=== PATIENT | male | born 1995 | race African-American/Black ===

== ENCOUNTER 2019-02-05 22:57 | Emergency (ER) | payer OTHER ==
[~2019-02-05] VITALS: Ht 172.7 cm; Wt 80.0 kg
[2019-02-05] MEDS ORDERED: SODIUM CHLORIDE 0.9% 1,000 ML IV ONE (23:48)
[2019-02-05] MEDS ORDERED: IPRATROPIUM BROMIDE (0.02%) 0.5MG/2.5ML NEB HHN STA (23:48)
[2019-02-05] MEDS ORDERED: ALBUTEROL (0.083%) 2.5MG/3ML NEB HHN STA (23:48)
[2019-02-05] MEDS ORDERED: KETOROLAC 30MG/ML VIAL IV STA (23:48)
[2019-02-06 00:07] LABS: BASOPHILS % 0.5 % (0.0-2.0); HEMATOCRIT. 50.9 % (42.0-52.0); HEMOGLOBIN. 17.8 g/dL (14.0-18.0); LYMPHOCYTES % 11.5 % (20.0-50.0); MEAN CORPUSCULAR HEMOGLOBIN 31.6 pg (28.0-32.0); MEAN CORPUSCULAR VOLUME 90.2 fL (80.0-94.0); MEAN PLATELET VOLUME 9.6 fl (7.4-10.4); PLATELET 140 x1000/uL (130-400); RED BLOOD CELL COUNT 5.65 mill/uL (4.7-6.1); RED CELL DISTRIBUTION WIDTH 13.6 % (11.6-14.6)
[2019-02-06 00:13] LABS: CHLORIDE 101 mEq/L (98-107)
[2019-02-06] MEDS ORDERED: SODIUM CHLORIDE 0.9% 500 ML IV ONE (01:30)
[2019-02-06] MEDS ORDERED: PREDNISONE 20MG TABLET PO ONE (01:30)
[2019-02-06] MEDS ORDERED: ALBUTEROL (0.5%) 2.5MG/0.5ML NEB HHN ONE (01:30)
[2019-02-06 02:30] VITALS: BP 139/68
== END 2019-02-06 02:38 | disposition home or self-care (01) ==
LOC: ER 23:16
DX: J45.901 Unspecified asthma with (acute) exacerbation (principal); J44.9 Chronic obstructive pulmonary disease, unspecified; J09.X2 Influenza due to identified novel influenza A virus with other respiratory manifestations; R10.13 Epigastric pain; R00.0 Tachycardia, unspecified; M79.10 Myalgia, unspecified site
CPT/HCPCS: 36415; 71045; 80053; 84484; 85025; 87804; 93005; 94640; 96361; 96374; 99284; J1885; J7030; J7040; J7512; J7611; Z7610

== ENCOUNTER 2019-12-15 12:37 | Emergency (ER) | payer OTHER ==
[~2019-12-15] VITALS: Ht 172.7 cm; Wt 85.2 kg
[2019-12-15] MEDS ORDERED: ACETAMINOPHEN 325MG TABLET PO STA (13:27)
[2019-12-15] MEDS ORDERED: ALBUTEROL (0.083%) 2.5MG/3ML NEB HHN STA (13:27)
[2019-12-15] MEDS ORDERED: MAGNESIUM 2 G PREMIX 50 ML IV ONE (13:30)
[2019-12-15 14:41] LABS: HEMOGLOBIN. 16.1 g/dL (14.0-18.0); MEAN CORPUSCULAR HEMOGLOBIN 30.4 pg (28.0-32.0); MEAN CORPUSCULAR VOLUME 88.4 fL (80.0-94.0); MEAN PLATELET VOLUME 9.7 fl (7.4-10.4); PLATELET 156 x1000/uL (130-400); RED BLOOD CELL COUNT 5.31 mill/uL (4.7-6.1); RED CELL DISTRIBUTION WIDTH 13.7 % (11.6-14.6)
[2019-12-15 14:58] LABS: CHLORIDE 105 mEq/L (98-107)
[2019-12-15 15:34] LABS: PLATELET ESTIMATE NORMAL
[2019-12-15 16:00] VITALS: BP 120/78
[2019-12-15] MEDS ORDERED: IBUPROFEN 600MG TABLET PO ONE (16:00)
== END 2019-12-15 16:00 | disposition home or self-care (01) ==
LOC: ER 12:37
DX: R05 Cough (principal); R06.02 Shortness of breath; Z71.89 Other specified counseling
CPT/HCPCS: 36415; 71045; 80053; 85025; 93005; 94640; 96365; 99285; J3475; Z7610

== ENCOUNTER 2019-12-17 09:47 | Inpatient (IN) | payer OTHER ==
[~2019-12-17] VITALS: Ht 172.7 cm; Wt 82.6 kg
[2019-12-17] MEDS ORDERED: ACETAMINOPHEN 325MG TABLET PO ONE (10:00)
[2019-12-17] MEDS ORDERED: MAGNESIUM 2 G PREMIX 50 ML IV STA ×2 (10:09→12:00)
[2019-12-17] MEDS ORDERED: ALBUTEROL (0.083%) 2.5MG/3ML NEB HHN STA ×2 (10:09→12:00)
[2019-12-17 10:28] LABS: HEMATOCRIT. 43.4 % (42.0-52.0); HEMOGLOBIN. 14.9 g/dL (14.0-18.0); MEAN CORPUSCULAR HEMOGLOBIN 30.1 pg (28.0-32.0); MEAN CORPUSCULAR VOLUME 87.8 fL (80.0-94.0); MEAN PLATELET VOLUME 9.2 fl (7.4-10.4); PLATELET 188 x1000/uL (130-400); RED BLOOD CELL COUNT 4.94 mill/uL (4.7-6.1); RED CELL DISTRIBUTION WIDTH 13.9 % (11.6-14.6)
[2019-12-17 10:35] LABS: CHLORIDE 105 mEq/L (98-107)
[2019-12-17 10:39] LABS: INR 1.1; PROTHROMBIN TIME 11.9 sec (9.6-11.0)
[2019-12-17] MEDS ORDERED: CEFTRIAXONE 1 G PREMIX 50 ML IV ONE (11:15)
[2019-12-17] MEDS ORDERED: AZITHROMYCIN 500 MG TABLET PO ONE (11:15)
[2019-12-17] MEDS ORDERED: KETOROLAC 15MG/ML VIAL IV ONE (11:30)
[2019-12-17 11:37] LABS: PLATELET ESTIMATE NORMAL
[2019-12-17 12:48] LABS: CLARITY URINE CLEAR (CLEAR); COLOR URINE DK YELLOW (YELLOW); KETONES URINE NEGATIVE (NEGATIVE); LEUKOCYTE ESTERASE URINE NEGATIVE (NEGATIVE); NITRITE URINE NEGATIVE (NEGATIVE); OCCULT BLOOD URINE NEGATIVE (NEGATIVE); PROTEIN URINE 1+ (NEGATIVE); SPECIFIC GRAVITY URINE 1.024 (1.005-1.030)
[2019-12-17] MEDS ORDERED: KETOROLAC 15MG/ML VIAL IV PRN (14:15)
[2019-12-17] MEDS ORDERED: DOCUSATE SODIUM 100MG CAPSULE PO PRN (14:15)
[2019-12-17] MEDS ORDERED: ALBUTEROL 6.7GM HFA INHALER ORI PRN (14:15)
[2019-12-17] MEDS ORDERED: ZOLPIDEM TARTRATE 5MG TABLET PO PRN (14:15)
[2019-12-17] MEDS ORDERED: ACETAMINOPHEN 325MG TABLET PO PRN (14:15)
[2019-12-17] MEDS ORDERED: DIPHENHYDRAMINE 50MG/ML VIAL IV PRN (14:15)
[2019-12-17] MEDS ORDERED: MAGNESIUM/ALUMINUM HYDROXIDE/SIMETHICONE 30ML UDC PO PRN (14:15)
[2019-12-17] MEDS ORDERED: NITROGLYCERIN 0.4MG TABLET SL SL PRN (14:15)
[2019-12-17] MEDS ORDERED: ONDANSETRON HCL 4MG/2ML INJ IV PRN (14:15)
[2019-12-17] MEDS ORDERED: GUAIFENESIN 200MG/10ML SUGAR FREE UDC PO PRN (14:15)
[2019-12-17] MEDS ORDERED: CLONIDINE 0.1MG TABLET PO PRN (14:15)
[2019-12-17] MEDS ORDERED: POTASSIUM CHLORIDE 20MEQ TABLET SR PO NR (14:45)
[2019-12-17] MEDS ORDERED: KCL 20MEQ/100ML PREMIX 100 ML IV SCH (15:00)
[2019-12-17] MEDS: ENOXAPARIN 40MG/0.4ML SYR SUBCUT SCH (15:52)
[2019-12-17 19:14] LABS: BG BASE EXCESS -2.4 mmol/L (-2.0-2.0); BG CARBOXYHEMOGLOBIN 0.1 % (0.5-1.5); BG FRACTION INSPIRED OXYGEN 32; BG HCO3 ACT 22.7 mmol/L (22.0-26.0); BG METHEMOGLOBIN 0.4 % (0.0-1.5); BG OXYHEMOGLOBIN 96.5 % (94.0-97.0); BG PCO2 40.2 mmHg (35.0-45.0); BG PH 7.369 (7.350-7.450); BG PO2 93.7 mmHg (75.0-100.0); BG SAMPLE SITE RIGHT RADIAL; BG TOTAL HEMOGLOBIN 15.7 g/dL (12.0-18.0); BG VENT MODE NASAL CANNULA
[2019-12-17 20:00] VITALS: BP_SYST 108; BP_SYST 124; BP_DIAS 57; BP_DIAS 58
[2019-12-17] MEDS: ACETAMINOPHEN 325MG TABLET PO PRN (21:04)
[2019-12-17] MEDS: GUAIFENESIN/DM 600MG/30MG ER TAB 12HR PO SCH (21:04)
[2019-12-17] MEDS: FAMOTIDINE 20MG TABLET PO SCH (21:04)
[2019-12-17] MEDS: ASCORBIC ACID 500 MG TABLET PO SCH (21:04)
[2019-12-17] MEDS: METHYLPREDNISOLONE SOD SUCC 125 MG/2 ML VIAL IV SCH (21:05)
[2019-12-17] MEDS ORDERED: PNEUMOCOCCAL 23-VAL P-SAC VAC 0.5 ML IM ONE (22:45)
[2019-12-17] MEDS ORDERED: ALBU2.5V13 NEB (23:26)
[2019-12-17] MEDS ORDERED: P50 PO (23:27)
[2019-12-17] MEDS ORDERED: ALBU18HF2 IH (23:28)
[2019-12-18] VITALS (7 sets, daily range): BP systolic 108–134; BP diastolic 56–92
[2019-12-18 00:08] LABS: CREATINE KINASE 203 IU/L (39-308)
[2019-12-18 00:09] LABS: CREATINE KINASE MB FRACTION < 1.0 ng/mL (0.5-3.6)
[2019-12-18 02:49] LABS: *AMPHETAMINES SCREEN URINE NEGATIVE (NEGATIVE); *BARBITURATES SCREEN URINE NEGATIVE (NEGATIVE); *BENZODIAZEPINES SCREEN URINE NEGATIVE (NEGATIVE); *COCAINE SCREEN URINE NEGATIVE (NEGATIVE); CANNABINOID URINE SCREEN NEGATIVE (NEGATIVE); PHENCYCLIDINE URINE SCREEN NEGATIVE (NEGATIVE)
[2019-12-18 02:50] LABS: METHADONE URINE SCREEN NEGATIVE (NEGATIVE); OPIATES URINE SCREEN NEGATIVE (NEGATIVE)
[2019-12-18] MEDS: METHYLPREDNISOLONE SOD SUCC 125 MG/2 ML VIAL IV SCH ×3 (06:39→21:29)
[2019-12-18] MEDS ORDERED: AZITHROMYCIN 500 MG in DEXT 5% WATER 250 ML IV SCH (09:00)
[2019-12-18 09:01] LABS: HEMATOCRIT. 44.9 % (42.0-52.0); MEAN CORPUSCULAR HEMOGLOBIN 30.2 pg (28.0-32.0); MEAN CORPUSCULAR VOLUME 90.4 fL (80.0-94.0); MEAN PLATELET VOLUME 9.2 fl (7.4-10.4); PLATELET 226 x1000/uL (130-400); RED BLOOD CELL COUNT 4.97 mill/uL (4.7-6.1); RED CELL DISTRIBUTION WIDTH 14.1 % (11.6-14.6)
[2019-12-18 09:18] LABS: CHLORIDE 103 mEq/L (98-107)
[2019-12-18 09:27] LABS: PHOSPHORUS 3.5 mg/dL (2.5-4.9)
[2019-12-18 09:29] LABS: CREATINE KINASE 205 IU/L (39-308)
[2019-12-18 09:33] LABS: CREATINE KINASE MB FRACTION < 1.0 ng/mL (0.5-3.6)
[2019-12-18] MEDS: FAMOTIDINE 20MG TABLET PO SCH ×2 (10:45→21:29)
[2019-12-18] MEDS: ASCORBIC ACID 500 MG TABLET PO SCH ×2 (10:45→21:29)
[2019-12-18] MEDS: GUAIFENESIN/DM 600MG/30MG ER TAB 12HR PO SCH ×2 (10:45→21:29)
[2019-12-18] MEDS: ZINC SULFATE 220 MG ( 50 ) CAPSULE PO SCH (10:46)
[2019-12-18] MEDS ORDERED: CEFTRIAXONE 1 G PREMIX 50 ML IV SCH (11:00)
[2019-12-18 12:46] LABS: PLATELET ESTIMATE NORMAL
[2019-12-18] MEDS: CEFTRIAXONE 1,000 MG in DEXTROSE 5% WATER 50 ML IV SCH (15:02)
[2019-12-18] MEDS: AZITHROMYCIN 500 MG in DEXT 5% WATER 250 ML IV SCH (15:03)
[2019-12-18] MEDS: ENOXAPARIN 40MG/0.4ML SYR SUBCUT SCH (15:42)
[2019-12-18] MEDS: ALBUTEROL 6.7GM HFA INHALER ORI SCH ×2 (15:51→21:23)
[2019-12-18] MEDS: MONTELUKAST SODIUM 10MG TABLET PO SCH (16:54)
[2019-12-19] MEDS: ALBUTEROL 6.7GM HFA INHALER ORI SCH ×4 (03:20→22:59)
[2019-12-19 04:00] VITALS: BP 135/85
[2019-12-19] MEDS: METHYLPREDNISOLONE SOD SUCC 125 MG/2 ML VIAL IV SCH (05:42)
[2019-12-19 08:00] VITALS: BP 123/81
[2019-12-19] MEDS: ZINC SULFATE 220 MG ( 50 ) CAPSULE PO SCH (08:09)
[2019-12-19] MEDS: FAMOTIDINE 20MG TABLET PO SCH ×2 (08:09→20:28)
[2019-12-19] MEDS: GUAIFENESIN/DM 600MG/30MG ER TAB 12HR PO SCH ×2 (08:09→20:28)
[2019-12-19] MEDS: ASCORBIC ACID 500 MG TABLET PO SCH ×2 (08:09→20:28)
[2019-12-19 12:00] VITALS: BP 122/77
[2019-12-19] MEDS ORDERED: AZITHROMYCIN 500 MG in DEXT 5% WATER 250 ML IV SCH (12:00)
[2019-12-19] MEDS: AZITHROMYCIN 500 MG in DEXT 5% WATER 250 ML IV SCH (14:13)
[2019-12-19] MEDS: DEXAMETHASONE 10 MG/ML VIAL IV SCH (14:14)
[2019-12-19] MEDS: ENOXAPARIN 40MG/0.4ML SYR SUBCUT SCH (14:16)
[2019-12-19] MEDS: CEFTRIAXONE 1,000 MG in DEXTROSE 5% WATER 50 ML IV SCH (15:33)
[2019-12-19 16:00] VITALS: BP 122/68
[2019-12-19] MEDS: MONTELUKAST SODIUM 10MG TABLET PO SCH (18:12)
[2019-12-19 20:42] VITALS: BP 125/83
[2019-12-19 23:30] VITALS: BP 130/83
[2019-12-20] MEDS: ALBUTEROL 6.7GM HFA INHALER ORI SCH ×4 (03:28→20:21)
[2019-12-20 04:00] VITALS: BP 132/88
[2019-12-20 08:00] VITALS: BP 128/91
[2019-12-20] MEDS: ZINC SULFATE 220 MG ( 50 ) CAPSULE PO SCH (08:14)
[2019-12-20] MEDS: GUAIFENESIN/DM 600MG/30MG ER TAB 12HR PO SCH ×2 (08:14→20:20)
[2019-12-20] MEDS: ASCORBIC ACID 500 MG TABLET PO SCH ×2 (08:14→20:20)
[2019-12-20] MEDS: DEXAMETHASONE 10 MG/ML VIAL IV SCH (08:14)
[2019-12-20] MEDS: FAMOTIDINE 20MG TABLET PO SCH ×2 (08:14→20:20)
[2019-12-20 12:00] VITALS: BP 125/87
[2019-12-20] MEDS: CEFTRIAXONE 1,000 MG in DEXTROSE 5% WATER 50 ML IV SCH (12:51)
[2019-12-20] MEDS: AZITHROMYCIN 500 MG in DEXT 5% WATER 250 ML IV SCH (14:34)
[2019-12-20] MEDS: ENOXAPARIN 40MG/0.4ML SYR SUBCUT SCH (14:35)
[2019-12-20 16:00] VITALS: BP 118/83
[2019-12-20] MEDS: MONTELUKAST SODIUM 10MG TABLET PO SCH (17:06)
[2019-12-20 19:52] VITALS: BP 103/70
[2019-12-20 23:31] VITALS: BP 124/81
[2019-12-21] MEDS: ALBUTEROL 6.7GM HFA INHALER ORI SCH ×4 (03:24→21:18)
[2019-12-21 04:00] VITALS: BP 125/89
[2019-12-21 05:59] LABS: CHLORIDE 104 mEq/L (98-107)
[2019-12-21 06:09] LABS: HEMATOCRIT. 48.2 % (42.0-52.0); HEMOGLOBIN. 16.2 g/dL (14.0-18.0); MEAN CORPUSCULAR HEMOGLOBIN 30.2 pg (28.0-32.0); MEAN CORPUSCULAR VOLUME 89.6 fL (80.0-94.0); MEAN PLATELET VOLUME 8.9 fl (7.4-10.4); PLATELET 345 x1000/uL (130-400); RED BLOOD CELL COUNT 5.38 mill/uL (4.7-6.1); RED CELL DISTRIBUTION WIDTH 13.8 % (11.6-14.6)
[2019-12-21 08:00] VITALS: BP 122/84
[2019-12-21] MEDS: DEXAMETHASONE 10 MG/ML VIAL IV SCH (08:25)
[2019-12-21] MEDS: ZINC SULFATE 220 MG ( 50 ) CAPSULE PO SCH (08:25)
[2019-12-21] MEDS: FAMOTIDINE 20MG TABLET PO SCH ×2 (08:25→21:16)
[2019-12-21] MEDS: ASCORBIC ACID 500 MG TABLET PO SCH ×2 (08:25→21:16)
[2019-12-21] MEDS: GUAIFENESIN/DM 600MG/30MG ER TAB 12HR PO SCH ×2 (08:25→21:15)
[2019-12-21 12:00] VITALS: BP 115/83
[2019-12-21 13:06] LABS: PLATELET ESTIMATE NORMAL
[2019-12-21] MEDS: CEFTRIAXONE 1,000 MG in DEXTROSE 5% WATER 50 ML IV SCH (13:13)
[2019-12-21] MEDS: ACETAMINOPHEN 325MG TABLET PO PRN (13:14)
[2019-12-21 16:00] VITALS: BP 124/80
[2019-12-21] MEDS: MONTELUKAST SODIUM 10MG TABLET PO SCH (17:44)
[2019-12-21] MEDS: ENOXAPARIN 40MG/0.4ML SYR SUBCUT SCH (17:45)
[2019-12-21 20:00] VITALS: BP 112/79
[2019-12-22] VITALS: BP 103/69
[2019-12-22] MEDS: ALBUTEROL 6.7GM HFA INHALER ORI SCH (02:40)
[2019-12-22 04:00] VITALS: BP 113/79
[2019-12-22 08:00] VITALS: BP 121/82
[2019-12-22] MEDS: ASCORBIC ACID 500 MG TABLET PO SCH (08:15)
[2019-12-22] MEDS: ZINC SULFATE 220 MG ( 50 ) CAPSULE PO SCH (08:15)
[2019-12-22] MEDS: GUAIFENESIN/DM 600MG/30MG ER TAB 12HR PO SCH (08:16)
[2019-12-22] MEDS: FAMOTIDINE 20MG TABLET PO SCH (08:16)
[2019-12-22] MEDS: DEXAMETHASONE 10 MG/ML VIAL IV SCH (08:16)
[2019-12-22 08:36] VITALS: BP 121/82
[2019-12-22] MEDS ORDERED: AZITHROMYCIN 500 MG TABLET PO SCH (09:00)
== END 2019-12-22 10:00 | disposition home or self-care (01) | DRG 871 ==
LOC: ER 09:47 → 7EST 13:21 → ENRESERV 15:24 → SUPCPDRO 15:39
PROVIDERS: ADMIT Internal Medicine; ATTEND Internal Medicine
DX: A41.89 Other specified sepsis (principal); U07.1 COVID-19; J96.00 Acute respiratory failure, unspecified whether with hypoxia or hypercapnia; J12.89 Other viral pneumonia; E44.1 Mild protein-calorie malnutrition; J45.901 Unspecified asthma with (acute) exacerbation; E87.6 Hypokalemia; I10 Essential (primary) hypertension; E80.6 Other disorders of bilirubin metabolism; Z79.01 Long term (current) use of anticoagulants; Z87.01 Personal history of pneumonia (recurrent); Z79.51 Long term (current) use of inhaled steroids; Z68.27 Body mass index [BMI] 27.0-27.9, adult
CPT/HCPCS: 36415; 36600; 71045; 80048; 80053; 80305; 81003; 82375; 82550; 82553; 82805; 83036; 83605; 83735; 84100; 84484; 85025; 86140; 87635; 87804; 93005; 93970; 94640; 99291; C1893; J0456; J0696; J1100; J1650; J2930; J3475; J3480; J7040; J7060

== ENCOUNTER 2022-09-22 17:46 | Inpatient (IN) | payer OTHER ==
[~2022-09-22] VITALS: Ht 172.7 cm; Wt 81.6 kg
[~2022-09-22 17:46] MED LIST: ALBU18HF2 IH; ALBU2.5V13 NEB; P50 PO
[2022-09-22] MEDS ORDERED: SODIUM CHLORIDE 0.9% 1000ML BAG (SEPSIS BOLUS) IV ONE (21:00)
[2022-09-22 21:49] LABS: BASOPHILS % 0.4 % (0.0-2.0); EOSINOPHILS % 3.6 % (0.0-5.0); HEMATOCRIT. 42.7 % (42.0-52.0); HEMOGLOBIN. 13.9 g/dL (14.0-18.0); LYMPHOCYTES % 34.7 % (20.0-50.0); MEAN CORPUSCULAR HEMOGLOBIN 29.5 pg (28.0-32.0); MEAN CORPUSCULAR HGB CONC 32.6 g/dL (31.0-37.0); MEAN CORPUSCULAR VOLUME 90.7 fL (80.0-94.0); MEAN PLATELET VOLUME 8.9 fl (7.4-10.4); MONOCYTES % 8.5 % (2.0-8.0); NEUTROPHILS % 52.8 % (40.0-76.0); PLATELET 249 x1000/uL (130-400); RED BLOOD CELL COUNT 4.71 mill/uL (4.7-6.1); RED CELL DISTRIBUTION WIDTH 14.7 % (11.6-14.6); WHITE BLOOD COUNT 7.9 x1000/uL (4.5-11.0)
[2022-09-22 21:52] LABS: PROTHROMBIN TIME 10.6 sec (9.6-11.0)
[2022-09-22 22:17] LABS: CHLORIDE 106 mEq/L (98-107); INDEX HEMOLYSI 1 (1-3); INDEX ICTERIC 1 (1-4); INDEX LIPEMIC 1 (1-3); POTASSIUM 3.5 mEq/L (3.5-5.1); SODIUM 138 mEq/L (136-145)
[2022-09-22 22:27] LABS: ALANINE AMINOTRANSFERASE 48 IU/L (13-61); ALBUMIN 3.8 g/dL (3.4-5.0); ASPARTATE AMINOTRANSFERASE 23 IU/L (15-37); BILIRUBIN TOTAL 0.5 mg/dL (0.1-1.0); CALCIUM 8.1 mg/dL (8.5-10.1); CARBON DIOXIDE 25 mEq/L (21-32); CREATININE 0.7 mg/dL (0.6-1.3); GLUCOSE 88 mg/dL (70-105); NT PRO B-TYPE NATRIURETIC PEP 6 pg/mL (5-125); PROTEIN TOTAL 8.8 g/dL (6.0-8.3); TROPONIN I HIGH SENSITIVITY 4 ng/L (<78); UREA NITROGEN BLOOD 18 mg/dL (7-21)
[2022-09-22] MEDS ORDERED: DEXT IV STA (23:33)
[2022-09-22] MEDS ORDERED: WATER IV STA (23:33)
[2022-09-22] MEDS ORDERED: PENICILLIN POTASSIUM IV STA (23:33)
[2022-09-22 23:58] LABS: GLUCOSE CSF 56 mg/dL (41-75)
[2022-09-23 01:31] LABS: CSF APPEARANCE CLEAR (CLEAR)
[2022-09-23 01:48] LABS: CSF WHITE BLOOD CELL 19 /cu mm (0-10)
[2022-09-23 03:47] VITALS: BP 133/65; PULSE 71; RESP 14; TEMP 97.3
[2022-09-23 08:00] VITALS: BP 136/79; PULSE 92; RESP 24; TEMP 97.4
[2022-09-23] MEDS ORDERED: ACETAMINOPHEN 325MG TABLET PO PRN (09:15)
[2022-09-23] MEDS ORDERED: HYDROCODONE/ACETAMINOPHEN 5/325MG TABLET PO PRN (09:15)
[2022-09-23] MEDS: SODIUM CHLORIDE 0.9% 1,000 ML IV SCH ×2 (09:15→23:12)
[2022-09-23 10:12] LABS: CHLORIDE 107 mEq/L (98-107); INDEX HEMOLYSI 2 (1-3); INDEX ICTERIC 1 (1-4); INDEX LIPEMIC 1 (1-3); POTASSIUM 3.7 mEq/L (3.5-5.1); SODIUM 139 mEq/L (136-145)
[2022-09-23 10:13] LABS: HEMATOCRIT. 43.2 % (42.0-52.0); HEMOGLOBIN. 14.5 g/dL (14.0-18.0); MEAN CORPUSCULAR HEMOGLOBIN 29.8 pg (28.0-32.0); MEAN CORPUSCULAR HGB CONC 33.6 g/dL (31.0-37.0); MEAN CORPUSCULAR VOLUME 88.8 fL (80.0-94.0); MEAN PLATELET VOLUME 9.4 fl (7.4-10.4); PLATELET 214 x1000/uL (130-400); RED BLOOD CELL COUNT 4.87 mill/uL (4.7-6.1); RED CELL DISTRIBUTION WIDTH 15.2 % (11.6-14.6)
[2022-09-23 10:14] LABS: CALCIUM 8.6 mg/dL (8.5-10.1)
[2022-09-23 10:17] LABS: CARBON DIOXIDE 29 mEq/L (21-32); CREATININE 0.8 mg/dL (0.6-1.3); GLUCOSE 86 mg/dL (70-105); UREA NITROGEN BLOOD 11 mg/dL (7-21)
[2022-09-23 10:19] LABS: DIFFERENTIAL COMMENT 1
[2022-09-23 10:26] LABS: CLARITY URINE CLEAR (CLEAR); COLOR URINE YELLOW (YELLOW); GLUCOSE URINE NEGATIVE (NEGATIVE); KETONES URINE NEGATIVE (NEGATIVE); LEUKOCYTE ESTERASE URINE NEGATIVE (NEGATIVE); NITRITE URINE NEGATIVE (NEGATIVE); OCCULT BLOOD URINE NEGATIVE (NEGATIVE); PROTEIN URINE NEGATIVE (NEGATIVE); SPECIFIC GRAVITY URINE 1.016 (1.005-1.030); UROBILINOGEN URINE 0.2 E.U./dL (0.2-1.0)
[2022-09-23 12:00] VITALS: BP 109/78; PULSE 81; RESP 17; TEMP 97.4
[2022-09-23 13:24] LABS: HEPATITIS B SURFACE ANTIGEN NEGATIVE
[2022-09-23 13:53] LABS: HEPATITIS C VIR.AB 0.17 INDEXVAL (0.00-0.80)
[2022-09-23] MEDS ORDERED: NALOXONE HCL 0.4MG/ML VIAL IV PRN (15:00)
[2022-09-23 16:00] VITALS: BP 113/64; PULSE 86; RESP 19; TEMP 97
[2022-09-23 17:14] LABS: PLATELET ESTIMATE NORMAL
[2022-09-23 20:00] VITALS: BP 126/80; PULSE 79; RESP 16; TEMP 97.3
[2022-09-23] MEDS: PENICILLIN G POTASSIUM 5 MMU in DEXT 5% WATER 100 ML IV SCH (20:14)
[2022-09-23] MEDS ORDERED: LORAZEPAM 2MG/ML CPJ IV NR (20:30)
[2022-09-24] VITALS: BP 121/68; PULSE 84; RESP 17; TEMP 97.6
[2022-09-24] MEDS: PENICILLIN G POTASSIUM 5 MMU in DEXT 5% WATER 100 ML IV SCH ×4 (03:13→19:46)
[2022-09-24 04:00] VITALS: BP 131/82; PULSE 58; RESP 17; TEMP 97.1
[2022-09-24] MEDS ORDERED: LORAZEPAM 2MG/ML CPJ IV NR (07:00)
[2022-09-24 08:00] VITALS: BP 127/77; PULSE 76; RESP 15; TEMP 97.2
[2022-09-24] MEDS: SODIUM CHLORIDE 0.9% 1,000 ML IV SCH (11:55)
[2022-09-24 12:07] VITALS: BP 146/80; PULSE 81; RESP 16; TEMP 97.5
[2022-09-24] MEDS ORDERED: GADOTERATE MEGLUMINE 5 MMOL/10 ML VIAL IV ONE (12:12)
[2022-09-24 15:58] VITALS: BP 112/88; PULSE 80; RESP 18; TEMP 97
[2022-09-24 20:00] VITALS: BP 119/71; PULSE 73; RESP 21; TEMP 97.6
[2022-09-25] VITALS: BP 111/59; PULSE 52; RESP 15; TEMP 97.8
[2022-09-25] MEDS: SODIUM CHLORIDE 0.9% 1,000 ML IV SCH ×2 (02:37→14:30)
[2022-09-25] MEDS: PENICILLIN G POTASSIUM 5 MMU in DEXT 5% WATER 100 ML IV SCH ×4 (02:37→20:05)
[2022-09-25 04:00] VITALS: BP 116/75; PULSE 68; RESP 16; TEMP 97.8
[2022-09-25 07:13] LABS: HIV SCREEN 4G Non Reactive (Non Reactive)
[2022-09-25 08:00] VITALS: BP 101/58; PULSE 71; RESP 16; TEMP 97.9
[2022-09-25 12:00] VITALS: BP 101/60; PULSE 64; RESP 18; TEMP 97.8
[2022-09-25 16:00] VITALS: RESP 20; TEMP 98.7
[2022-09-25 20:08] VITALS: BP 103/62; PULSE 67; RESP 17; TEMP 98.6
[2022-09-26] VITALS: BP 119/68; PULSE 65; RESP 16; TEMP 98.2
[2022-09-26] MEDS: PENICILLIN G POTASSIUM 5 MMU in DEXT 5% WATER 100 ML IV SCH ×3 (03:02→13:48)
[2022-09-26] MEDS: SODIUM CHLORIDE 0.9% 1,000 ML IV SCH (03:02)
[2022-09-26 04:00] VITALS: BP 99/56; PULSE 56; RESP 13; TEMP 97.8
[2022-09-26 08:00] VITALS: BP 126/72; PULSE 71; RESP 18; TEMP 98.5
[2022-09-26 12:00] VITALS: BP 117/66; PULSE 75; RESP 18; TEMP 98.7
[2022-09-26] MEDS ORDERED: ESCI-7 PO (12:44)
[2022-09-26] MEDS ORDERED: TRUV PO (12:44)
[2022-09-26] MEDS ORDERED: IBUP-2030 MT (14:00)
[2022-09-26] MEDS ORDERED: DOXY100C5 MT (14:00)
[2022-09-26 16:00] VITALS: BP 129/89; PULSE 76; RESP 18; TEMP 98.7
[2022-09-26 17:52] VITALS: BP 129/89; PULSE 76; TEMP 98.7; O2SAT 98
[2022-09-27 15:11] LABS: VDRL CSF Non Reactive (Non Rea:<1:1)
== END 2022-09-26 18:22 | disposition home or self-care (01) | DRG 869 ==
LOC: ER 17:46 → 3WST 09-23 00:07
PROVIDERS: ADMIT Internal Medicine; ATTEND Internal Medicine
DX: A51.49 Other secondary syphilitic conditions (principal); H93.19 Tinnitus, unspecified ear; H93.13 Tinnitus, bilateral
CPT/HCPCS: 36415; 70553; 71045; 80048; 80053; 81003; 82945; 83605; 83880; 84145; 84157; 84484; 85025; 85651; 86592; 86593; 86780; 86803; 87070; 87210; 87340; 87389; 87899; 93005; 99285; A9577; J2540; J7030; J7060